=== PATIENT | female | born 1990 | race African-American/Black ===

== ENCOUNTER 2017-10-06 10:00 | Emergency (ER) | payer OTHER ==
[~2017-10-06] VITALS: Ht 175.3 cm; Wt 55.8 kg
--- NOTE | 2017-10-06 10:18 | NUR ---
Patient discharged to home in stable conditon. Written and verbal after care instructions given. Patient verbalizes understanding of instructions.
== END 2017-10-06 10:20 | disposition home or self-care (01) ==
LOC: ER 10:00
DX: J02.9 Acute pharyngitis, unspecified (principal)
CPT/HCPCS: A4663